=== PATIENT | female | born 1950 | race Caucasian/White ===

== ENCOUNTER 2019-11-23 14:45 | Emergency (ER) | payer MEDICARE, MEDICAID ==
[~2019-11-23] VITALS: Ht 157.5 cm; Wt 72.6 kg
[2019-11-23 14:55] VITALS: BP 113/56
--- NOTE | 2019-11-23 15:31 | NUR ---
69 Y/O FEMALE PRESENTS WITH RIGHT THUMB BLISTER/BRUISING, INSPECTOR ALUMINUM BOAT NOTICED THUMB A FEW HOURS AGO. DOES NOT KNOW IF PATIENT INJURED THUMB. PATIENT AAOX1 (SELF). PATIENT DOES NOT REPORT ANY PAIN AT THIS TIME. RADIAL PULSES 2+ IN BILAT ARM. REDDNESS NOTED ON RIGHT THUMB AND REACHING WRIST AREA. BRUISING AND BLISTER ON RIGHT THUMB. RESP EVEN AND UNLABORED. LUNG SOUNDS CLEAR. DENIES FEVER/CHILL. ALLERGIES : SULFA
[2019-11-23] MEDS ORDERED: LIDOCAINE MPF 1% 10 MG/ML VIAL INJ SCH (16:00)
[2019-11-23] MEDS ORDERED: IBUPROFEN 600 MG TAB PO SCH (16:00)
[2019-11-23] MEDS ORDERED: BACITRACIN OINT 500 UNITS/GM PKT TP ONE ×2 (17:12→17:15)
--- NOTE | 2019-11-23 17:32 | NUR ---
PT RESTING IN BED. RESP EVEN AND UNLABORED, PT SIGNED TDAP VACCINE FORM.CAREGIVER AT BEDSIDE
[2019-11-23 17:41] VITALS: BP 113/56
--- NOTE | 2019-11-23 17:41 | NUR ---
Patient discharged with v/s stable. Written and verbal after care instructions given and explained. Patient alert, oriented and verbalized understanding of instructions. Ambulatory with by caregiver. All questions addressed prior to discharge. ID band removed. Patient advised to follow up with PMD. Rx of KEFLEX, BACITRACIN, IBUPROFEN given. Patient educated on indication of medication including possible reaction and side effects. Opportunity to ask questions provided and answered.
== END 2019-11-23 17:41 | disposition home or self-care (01) ==
LOC: MED 14:45
DX: S60.111A Contusion of right thumb with damage to nail, initial encounter (principal); L03.011 Cellulitis of right finger; F20.9 Schizophrenia, unspecified; E11.9 Type 2 diabetes mellitus without complications; X58.XXXA Exposure to other specified factors, initial encounter; Y93.89 Activity, other specified; Y92.89 Other specified places as the place of occurrence of the external cause; Y99.8 Other external cause status
CPT/HCPCS: 10060; 73130; 90471; 90715; 99283; J2001; Q0092